=== PATIENT | male | born 1980 | race Two or more races ===

== ENCOUNTER 2023-11-23 11:36 | Emergency (ER) | payer SELFPAY ==
[2023-11-23] VITALS (15 sets, daily range): BP systolic 129–151; BP diastolic 77–98; PULSE 60–86; RESP 13–20; TEMP 36.7; O2SAT 94–100
--- NOTE | 2023-11-23 12:00 | DI.RAD_ITS ---
Exam(s) XR HUMERUS RT XR SHOULDER RT COMPLETE 2+V EXAM: XR SHOULDER RT COMPLETE 2+V CLINICAL HISTORY: fall, pain deformity. TECHNIQUE: 2D digital imaging was performed. Five views. COMPARISON: CR XR HUMERUS RT from 11/23/2023 FINDINGS: BONES: Anterior shoulder dislocation. No visible fracture. No bony destructive lesion is seen. JOINTS: The humeral head is dislocated anteriorly and inferiorly with respect to the glenoid. Mild s purring at the AC joint. The elbow is unremarkable. SOFT TISSUE: Normal. IMPRESSION: Anterior shoulder dislocation. DATA REPOSITORY: RADIATION DOSE DELIVERED:
--- NOTE | 2023-11-23 12:51 | ED.GENADUL_ITS ---
Discharge Plan Disposition Patient Disposition: Home Condition: Improving Discharge Details Chief Complaint: Orthopedic Clinical Impression: Anterior shoulder dislocation Primary Care Provider: Mateo Lora ED Provider: Mateo Lora Home Meds and New Rx's Prescriptions: No Action No Known Home Meds Discharge Instructions Instructions: Shoulder Dislocation Additional Instructions: Please follow-up with orthopedic surgical team as well as your primary care physician. Return to the Emergency Department for any worsening symptoms HPI General Date/Time Provider Initiated Documentation: 11/23/23 11:57 . HPI Narrative: 43-year-old male presents after fall from ladder approximately 7 foot onto his right side hitting his shoulder no head injury no back chest or abdominal injury. Pain and deformity to right shoulder Related Data Home Medications ?Medication ?Instructions ?Recorded ?Confirmed Unknown [No Known Home Meds] 11/23/23 11/23/23 General Stated Complaint: Orthopedic DIANA: 4 Exam Narrative Exam Narrative: Alert oriented interactive Moist mucous membranes tongue secretions no facial trauma Full range of motion of neck no midline spinal tenderness step-off crepitus or deformity Speaking full sentences no respiratory distress No abdominal tenderness or distention Obvious deformity to right shoulder with empty glenoid, likely anterior dislocation, full range of motion at elbow wrist and fingers, median radial and ulnar sensory distribution intact strong radial pulse Alert oriented no cranial nerve deficits moving not traumatize extremities with full strength no ataxia normal speech Course Vital Signs Vital signs: Vital Signs Temperature 36.7 C 11/23/23 11:47 Pulse 70 11/23/23 11:47 Respiratory Rate 15 11/23/23 11:47 Blood Pressure 151/98 H 11/23/23 11:47 Pulse Oximetry 98 11/23/23 11:47 Temperature 36.7 C 11/23/23 11:47 Temperature Source Oral 11/23/23 11:47 Pulse 70 11/23/23 11:47 Respiratory Rate 15 11/23/23 11:47 Respiratory Effort Normal 11/23/23 11:50 Blood Pressure 151/98 H 11/23/23 11:47 Blood Pressure Position Sitting 11/23/23 11:47 Pulse Oximetry 98 11/23/23 11:47 Oxygen Delivery Method Room Air 11/23/23 11:47 Oxygen Flow Rate 0 11/23/23 11:47 Pain Level 7 11/23/23 11:47 Lab/Test Results Lab/Test Results: Laboratory Tests Range/Units 11/23/23 12:15 WBC Cancelled RBC Cancelled Hgb Cancelled Hct Cancelled MCV Cancelled MCH Cancelled MCHC Cancelled RDW Cancelled Plt Count Cancelled MPV Cancelled Immature Gran % Cancelled Neutrophils % Cancelled Band Neutrophils % Cancelled Lymphocytes % Cancelled Atypical Lymphs % Cancelled Monocytes % Cancelled Eosinophils % Cancelled Basophils % Cancelled Metamyelocytes % Cancelled Myelocytes % Cancelled Promyelocytes % Cancelled Other Cells % Cancelled Nucleated RBC % Cancelled Absolute Neutrophils Cancelled Absolute Lymphocytes Cancelled Absolute Monocytes Cancelled Absolute Eosinophils Cancelled Absolute Basophils Cancelled RBC Morphology Cancelled Polychromasia Cancelled Hypochromasia Cancelled Poikilocytosis Cancelled Basophilic Stippling Cancelled Anisocytosis Cancelled Microcytosis Cancelled Macrocytosis Cancelled Spherocytes Cancelled Tear Drop Cells Cancelled Ovalocytes Cancelled Stomatocytes Cancelled [place] Bodies Cancelled [place] Cells/Echinocytes Cancelled Acanthocytes (Sp[place]) Cancelled Schistocytes Cancelled Sodium Cancelled Potassium Cancelled Chloride Cancelled Carbon Dioxide Cancelled Anion Gap Cancelled BUN Cancelled Creatinine Cancelled Est GFR (CKD-EPI 2020) Cancelled Glucose Cancelled Calcium Cancelled Total Bilirubin Cancelled AST Cancelled ALT Cancelled Alkaline Phosphatase Cancelled Total Protein Cancelled Albumin Cancelled Procedures Orthopedic Joint Reduction Joint #1: Time Out Performed: Yes Side: right Joint Reduction Location: shoulder Analgesia: procedural sedation Shoulder Technique Used (if applicable): external rotation Technique used: direct manipulation Post-reduction neuro exam: intact Post-reduction vascular: intact Post Reduction X-Ray Obtained: Yes Post Reduction X-Ray Results: reduced Additional Comments: sling applied Procedural Sedation ASA Class: I Preparation: monitor car operator applied, pulse oximeter, capnometry used, suction/airway equipment at bedside and IV secured IV Propofol dose (mg): 40 Patient Tolerated Procedure: well Complications: none Medical Decision Making 43-year-old male presents after fall from ladder approximately 7 foot onto his right side hitting his shoulder no head injury no back chest or abdominal injury. Pain and deformity to right shoulder; patient alert oriented hemodynamically stable GCS of 15 airway breathing and circulation intact, secondary survey unremarkable except for deformity to right shoulder empty glenoid likely anterior shoulder dislocation, neurovascular exam of limb intact, full range of motion elbow wrist and fingers of involved limb, no cranial thoracoabdominal trauma no midline spinal tenderness step-off crepitus or deformity. Will obtain x-ray shoulder and humerus, analgesia IV placement as patient will likely require procedural sedation for reduction given muscular habitus and timeframe of dislocation 14: 50 anterior shoulder dislocation reduced under procedural sedation 0.5 mg/kg propofol IV, neurovascular exam intact postreduction, x-ray confirmed reduction. Patient kept in sling. Will be given orthopedic referral. Patient has returned to baseline. Quality:SDOH Health Related Social Needs: No Data to Display PFSH All Active Problems (Updated 11/23/23 @ 14:53 by Mateo Lora MD) Anterior shoulder dislocation (Acute) Social History Smoking/Tobacco Use Status: Never Smoking risk assessment performed?: Yes Alcohol Intake: current Alcohol Intake frequency: holidays/special occasions only Alcohol type: beer PAWSS Have you Been Recently Intoxicated or Drunk Within the Last 30 days?: No Have you Ever Experienced Previous Episodes of Alcohol Withdrawal?: No Have you ever Experienced Withdrawal Seizures?: No Have you ever Experienced Delirium Tremens(DT)s?: No Have you ever undergone Alcohol Rehabilitation Treatment (i.e, inpt ot outpatient treatment programs)?: No Have you ever Experienced Blackouts?: No Have you ever Combined Alcohol with other Downers within the last 90 days?: No Have you ever Combined Alcohol with any other Substance of Abuse during the last 90 days?: No Positive Blood Alcohol level on Presentation? [PCS.BAL]: No Evidence of Increased Autonomic Activity (i.e. HR>120, tremor, sweating, agitation, nausea)?: No Result: 0
[2023-11-23] MEDS: Ketorolac 15 MG/ML VIAL IVP (13:41)
[2023-11-23] MEDS: Normal Saline 1,000 ML 1000 ML IV (13:42)
--- NOTE | 2023-11-23 14:30 | DI.RAD_ITS ---
Exam(s) XR SHOULDER RT COMPLETE 2+V EXAM: XR SHOULDER RT COMPLETE 2+V INDICATION: post reduction. COMPARISON: CR XR SHOULDER RT COMPLETE 2+V from 11/23/2023 TECHNIQUE: 2D digital imaging was performed. Two views. FINDINGS: The humeral head is now positioned in the glenoid. No definite fracture fragments are seen. DATA REPOSITORY: RADIATION DOSE DELIVERED:
[2023-11-23] MEDS: Propofol 200 MG/20 ML VIAL 80 MG IVP (14:38)
--- NOTE | 2023-11-24 08:13 | NUR.NOTE ---
Access chart to get the diagnosis for [facility] ortho requisition. Nursing Note:
== END 2023-11-23 15:39 | disposition home or self-care (01) ==
PROVIDERS: Emergency Provider Emergency Medicine; PCP Emergency Medicine
DX: S43.014A Anterior dislocation of right humerus, initial encounter (principal); W11.XXXA Fall on and from ladder, initial encounter
CPT/HCPCS: 23655; 80053; 96361; 96374; 96375; 99152; 99153; 99285; 73030; 73060; 85025; 99283; J1885; J2704